=== PATIENT | female | born 1945 | race Caucasian/White ===

== ENCOUNTER 2021-06-16 12:33 | Outpatient (CLI) | payer MEDICARE, OTHER ==
[~2021-06-16] VITALS: Ht 162.6 cm; Wt 86.3 kg
[~2021-06-16 12:33] MED LIST: ASPIRIN 32325 MG/TAB PO; CAFERGOT 100 MG1 TAB PO; COLACE 100100 MG/CAP PO; COSAMIN ASU 2001 CAP PO; CYMBALTA 30MG30 MG PO; CYMBALTA 60MG60 MG PO; DESYREL 50MG50 MG PO; LEVOTHYROXINE PO; LOPRESSOR 550 MG/TAB PO; MACROBID 1100 MG/CAP PO; PERCOCET 325 MG1 TA2 PO; PRIL40 PO; SYNTHROID0.088 MG/T PO; SYNTHROID0.1 MG/TAB PO; ZOLOFT100 MG PO
[2021-06-16 13:26] VITALS: BP 117/78; PULSE 81; TEMP 98.1
[2021-06-16 13:45] VITALS: BP 113/75; PULSE 78
[2021-06-16 14:00] VITALS: BP 126/82; PULSE 74
[2021-06-16 14:15] VITALS: BP 126/84; PULSE 76
[2021-06-16 14:45] VITALS: BP 124/81; PULSE 74
[2021-06-16 15:00] VITALS: TEMP 98.8
[2021-06-16] MEDS ORDERED: PRISTIQ 50 MG T50 MG PO (16:05)
[2021-06-16] MEDS ORDERED: LIPITOR 10MG10 MG PO (16:06)
[2021-06-16] MEDS ORDERED: HCTZ12.5TAB PO (16:06)
[2021-06-16] MEDS ORDERED: VISION FORMULA1 EAC1 PO (16:07)
[2021-06-16] MEDS ORDERED: CALCIUM 600MG+D1 TAB PO (16:07)
[2021-06-16] MEDS ORDERED: ASPIRIN E.C. 8181 MG PO (16:07)
[2021-06-16] MEDS ORDERED: MASON NATURAL2000 IU PO (16:08)
== END 2021-06-16 16:13 | disposition home or self-care (01) ==
LOC: EUO 12:33
DX: J02.9 Acute pharyngitis, unspecified (principal); Z23 Encounter for immunization
CPT/HCPCS: Q0244

== ENCOUNTER 2021-10-29 10:56 | Emergency (ER) | payer MEDICARE, OTHER ==
[~2021-10-29] VITALS: Ht 162.6 cm; Wt 81.8 kg
[~2021-10-29 10:56] MED LIST changes: +ASPIRIN E.C. 8181 MG PO; +CALCIUM 600MG+D1 TAB PO; +HCTZ12.5TAB PO; +LIPITOR 10MG10 MG PO; +MASON NATURAL2000 IU PO; +PRISTIQ 50 MG T50 MG PO; +VISION FORMULA1 EAC1 PO
[2021-10-29 10:59] VITALS: TEMP 98.1
[2021-10-29 11:34] LABS: BASO % 0.4 % (0.0-2.0); EOS # 0.1 K/mm3 (0.0-0.7); EOS % 1.1 % (0.0-4.0); GRAN # 4.1 K/mm3 (1.4-6.5); HEMATOCRIT 38.1 % (37.0-47.0); HEMOGLOBIN 12.5 g/dl (12.5-16.0); LYMPH # 0.8 K/mm3 (1.2-3.4); MEAN CELL VOLUME 88 fl (80.0-100.0); MEAN CORPUSCULAR HEMOGLOBIN 29 pg (27-31); MEAN CORPUSCULAR HGB CONC 33 g/dl (33.0-37.0); MEAN PLATELET VOLUME 10.1 fl (7.4-10.4); MONO # 0.7 K/mm3 (0.1-0.6); MONO % 12.1 % (1.7-9.3); PLATELET COUNT 203 K/mm3 (130-400); RED BLOOD COUNT 4.32 M/mm3 (4.10-5.30); REDCELL DISTRIBUTION WIDTH-CV 13.2 % (11.5-14.5)
[2021-10-29 12:03] LABS: ALBUMIN 3.6 gm/dL (3.4-4.8); C-REACTIVE PROTEIN 2.09 mg/dL (0.00-0.50); CALCIUM 8.5 mg/dL (8.4-10.2); CREATININE, serum 0.97 mg/dL (0.57-1.11); POTASSIUM 3.3 mmol/L (3.5-4.5); TOTAL PROTEIN 6.5 gm/dL (6.2-8.1)
[2021-10-29 12:21] LABS: BILIRUBIN,TOTAL 0.4 mg/dL (0.2-1.2)
[2021-10-29 14:21] VITALS: BP 114/83; PULSE 60
== END 2021-10-29 14:25 | disposition home or self-care (01) ==
LOC: COL.ER 10:56
PROVIDERS: Family Medicine
DX: E86.0 Dehydration (principal); R55 Syncope and collapse; F32.A Depression, unspecified; E03.9 Hypothyroidism, unspecified; Z20.822 Contact with and (suspected) exposure to COVID-19; Z79.890 Hormone replacement therapy; Z79.899 Other long term (current) drug therapy
CPT/HCPCS: J2405; J7120

== ENCOUNTER → 2022-11-09 | Outpatient (CLI) | payer MEDICARE, OTHER | LOC: MC.RAD 13:45 | DX: Z12.31 Encounter for screening mammogram for malignant neoplasm of breast (principal) ==

== ENCOUNTER 2022-12-12 09:47 | Day surgery (SDC) | payer MEDICARE, OTHER ==
[~2022-12-12] VITALS: Ht 162.6 cm; Wt 86.6 kg
[2022-12-12 09:57] VITALS: BP 118/87; PULSE 97; TEMP 97.2
[2022-12-12] MEDS ORDERED: LOTRISONE 0.05%1 CRE TOP (10:05)
[2022-12-12] MEDS ORDERED: SINGULAIR 110 MG/TAB PO (10:05)
[2022-12-12 12:00] VITALS: BP 133/82; PULSE 74; TEMP 97.2
[2022-12-12 12:15] VITALS: BP 124/83; PULSE 70
[2022-12-12 12:30] VITALS: BP 134/76; PULSE 79
[2022-12-12 12:45] VITALS: BP 111/74; PULSE 82
--- NOTE | 2022-12-12 12:53 | NUR ---
1200- PATIENT RETURNS TO [facility] VIA CART. PT AWAKE AND ALERT. RESPIRATIONS UNLABORED. AMBULATED TO RECLINER CHAIR WITH 2:1 SBA. PT DENIES NAUSEA OR ABDOMINAL PAIN. HOOKED UP TO MONITOR AND VS OBTAINED. CALL LIGHT AT SIDE AND DAUGHTER PRESENT. 1206- PATIENT TOLERATING DRINK AND SNACK WITHOUT NAUSEA OR DIFFICULTY SWALLOWING. 1217- D/C INSTRUCTIONS REVIEWED WITH PATIENT. PT VERBALIZED UNDERSTANDING AND A COPY OF INSTRUCTIONS PROVIDED IN D/C FOLDER. 1230- DR. DELGADO IN ROOM SPEAKING WITH PATIENT. 1249- PATIENT DRESSES SELF. 1253- PATIENT DISCHARGED FROM UNIT VIA W/C TO A PERSONAL VEHICLE. PT LEFT HOSPITAL IN STABLE CONDITION.
== END 2022-12-12 12:53 | disposition home or self-care (01) ==
LOC: SDCO 09:47
DX: D12.2 Benign neoplasm of ascending colon (principal); K57.30 Diverticulosis of large intestine without perforation or abscess without bleeding; K64.0 First degree hemorrhoids; K29.50 Unspecified chronic gastritis without bleeding; K31.7 Polyp of stomach and duodenum; K44.9 Diaphragmatic hernia without obstruction or gangrene; K21.9 Gastro-esophageal reflux disease without esophagitis; G47.33 Obstructive sleep apnea (adult) (pediatric)
CPT/HCPCS: J2405; J2704; J7120

== ENCOUNTER → 2023-01-04 | Outpatient (CLI) | payer MEDICARE, OTHER ==
[~2023-01-04] MED LIST changes: +LOTRISONE 0.05%1 CRE TOP; +SINGULAIR 110 MG/TAB PO
== END ==
LOC: COL.RAD 10:46
DX: Z01.812 Encounter for preprocedural laboratory examination (principal); K21.9 Gastro-esophageal reflux disease without esophagitis; K31.89 Other diseases of stomach and duodenum; K57.30 Diverticulosis of large intestine without perforation or abscess without bleeding; K76.0 Fatty (change of) liver, not elsewhere classified; Z90.49 Acquired absence of other specified parts of digestive tract; Z98.890 Other specified postprocedural states
CPT/HCPCS: Q9967

== ENCOUNTER 2023-10-12 12:58 | Emergency (ER) | payer MEDICARE, OTHER ==
[~2023-10-12] VITALS: Ht 162.6 cm; Wt 86.4 kg
[2023-10-12 13:41] LABS: BASO % 0.5 % (0.0-2.0); EOS # 0.1 K/mm3 (0.0-0.7); EOS % 0.6 % (0.0-4.0); GRAN # 6.6 K/mm3 (1.4-6.5); GRAN % 77.4 % (42.2-75.2); HEMATOCRIT 39.7 % (37.0-47.0); LYMPH # 1.3 K/mm3 (1.2-3.4); LYMPH % 15.1 % (20.0-51.0); MEAN CELL VOLUME 89 fl (80.0-100.0); MEAN CORPUSCULAR HEMOGLOBIN 29 pg (27-31); MEAN CORPUSCULAR HGB CONC 33 g/dl (33.0-37.0); MEAN PLATELET VOLUME 10.1 fl (7.4-10.4); MONO # 0.5 K/mm3 (0.1-0.6); PLATELET COUNT 237 K/mm3 (130-400); RED BLOOD COUNT 4.47 M/mm3 (4.10-5.30); REDCELL DISTRIBUTION WIDTH-CV 13.4 % (11.5-14.5)
[2023-10-12 13:55] LABS: ALANINE AMINOTRANSFERASE 7 U/L (0-55); ALBUMIN 4.2 gm/dL (3.4-4.8); ALKALINE PHOSPHATASE 76 U/L (40-150); ANION GAP 13 mmol/L (7-16); AST,SGOT 16 U/L (5-34); BILIRUBIN,TOTAL 0.7 mg/dL (0.2-1.2); BLOOD UREA NITROGEN 10 mg/dL (10-20); CARBON DIOXIDE 24 mmol/L (23-31); CHLORIDE 105 mmol/L (98-107); CREATININE, serum 0.76 mg/dL (0.57-1.11); GLUCOSE 110 mg/dL (70-99); POTASSIUM 3.9 mmol/L (3.5-4.5); SODIUM 142 mmol/L (136-145); TOTAL PROTEIN 7.2 gm/dL (6.2-8.1)
[2023-10-12 14:04] LABS: TROPONIN-I < 0.010 ng/mL (0.00-0.033)
[2023-10-12 14:11] LABS: COLLECTION METHOD CLEAN CATCH
[2023-10-12 14:24] LABS: PH 7.5 (5.0-8.5); URINE APPEARANCE Clear (CLEAR/HAZY); URINE BLOOD TRACE-LYSED (NEGATIVE); URINE COLOR Yellow (YELLOW); URINE GLUCOSE Negative (NEGATIVE); URINE KETONE Negative (NEGATIVE); URINE NITRATE Negative (NEGATIVE); URINE PROTEIN(semi-quant) Negative (NEGATIVE); URINE UROBILINOGEN 0.2 E.U/dL (0.2-1.0)
[2023-10-12] MEDS ORDERED: ANTIVERT 25MG25 MG PO (15:22)
[2023-10-12] MEDS ORDERED: ZOFRAN 4MG T4 MG/TAB PO (15:22)
[2023-10-12 15:43] VITALS: BP 146/76; PULSE 69; TEMP 98.4
== END 2023-10-12 15:43 | disposition home or self-care (01) ==
LOC: COL.ER 12:58
PROVIDERS: Physician Assistant
DX: R42 Dizziness and giddiness (principal); R11.2 Nausea with vomiting, unspecified
CPT/HCPCS: J2405; J7030; Q9967

== ENCOUNTER → 2024-01-09 | Outpatient (CLI) | payer MEDICARE, OTHER ==
[~2024-01-09] MED LIST changes: +ANTIVERT 25MG25 MG PO; +ZOFRAN 4MG T4 MG/TAB PO
== END ==
LOC: COL.RAD 12:45
DX: K21.9 Gastro-esophageal reflux disease without esophagitis (principal); K62.5 Hemorrhage of anus and rectum; R19.7 Diarrhea, unspecified; Z86.010 Personal history of colon polyps; Z90.49 Acquired absence of other specified parts of digestive tract